=== PATIENT | female | born 1955 | race Caucasian/White ===

== ENCOUNTER 2017-08-12 14:31 | Emergency (ER) | payer MEDICAID, OTHER ==
[2017-08-12] MEDS ORDERED: Meclizine 25 MG Tab PO ONE (15:04)
--- NOTE | 2017-08-12 15:05 | EDM.PDOC ---
ED HPI GENERAL MEDICAL PROBLEM - General Chief Complaint: General Stated Complaint: VERTIGO Time Seen by Provider: 08/12/17 14:45 Source of Information: Reports: Patient History Limitations: Reports: No Limitations - History of Present Illness INITIAL COMMENTS - FREE TEXT/NARRATIVE: Susie comes into [facility] ED by EMS with sxs of vertigo since this am. Sxs are rotary. There is no headache, fevr, chills, nasal congestion, or cough, although she is aware that the l eye is reddened today. There has been no discharge. She has had vertigo in the past, and sxs have not improved since taking a dose of Meclizine 25 mg around 10 am. She has had 1 emesis. - Related Data Allergies Allergy/AdvReac Type Severity Reaction Status Date / Time acetaminophen [From Tylenol] Allergy Cannot Verified 08/12/17 14:47 Remember latex Allergy Cannot Verified 08/12/17 14:47 Remember meperidine [From Demerol] Allergy Cannot Verified 08/12/17 14:47 Remember Home Meds: Home Meds Meclizine [Antivert] 25 mg PO TID PRN #20 tab 08/12/17 [Rx] Nystatin [Nystatin] 1 applic TOP ASDIRECTED 08/12/17 [History] Omeprazole [Omeprazole] 20 mg PO BEDTIME 08/12/17 [History] Oxybutynin [Oxybutynin ER] 10 mg PO DAILY 08/12/17 [History] Rosuvastatin Calcium [Rosuvastatin Calcium] 10 mg PO DAILY 08/12/17 [History] Warfarin Sodium [Warfarin Sodium] 5 mg PO ASDIRECTED 08/12/17 [History] Past Medical History Neurological History: Reports: Vertigo - Past Surgical History Cardiovascular Surgical History: Reports: Valve Replacement Social & Family History - Tobacco Use Smoking Status *Q: Never Smoker - Caffeine Use Caffeine Use: Reports: Coffee - Recreational Drug Use Recreational Drug Use: No ED ROS GENERAL - Review of Systems Review Of Systems: ROS reveals no pertinent complaints other than HPI. ED EXAM, GENERAL - Physical Exam Exam: See Below Exam Limited By: No Limitations General Appearance: Alert, WD/WN, No Apparent Distress, Anxious Eye Exam: Right Eye: Normal Inspection, Left Eye: Conjunctival Injection, Bilateral Eye: EOMI, PERRL Ears: Normal External Exam, Normal TMs, Other (Ears did not clear with Politzer maneuver) Nose: Normal Inspection Throat/Mouth: Normal Inspection, Normal Lips, Normal Teeth, Normal Gums, Normal Oropharynx Head: Normocephalic Neck: Normal Inspection, Supple, Non-Tender Respiratory/Chest: Lungs Clear, Normal Breath Sounds, Chest Non-Tender Cardiovascular: Regular Rate, Rhythm, No Edema, No Murmur GI/Abdominal: Normal Bowel Sounds, Soft, Non-Tender, No Organomegaly, No Distention, No Mass Back Exam: Normal Inspection Extremities: Normal Inspection Neurological: Alert, Oriented, CN II-XII Intact, Normal Cognition, No Motor/ Sensory Deficits, Other (nystagmus on L lateral gaze) Psychiatric: Normal Affect, Anxious Skin Exam: Warm, Dry, Intact, Normal Color Lymphatic: No Adenopathy Course - Vital Signs Text/Narrative:: Following assessment at the [facility] ED, I administered Meclizine 25 mg, with iimprovment in sxs in about an hour. Her CBC was normal. Last Recorded V/S: Last Vital Signs Temp 36.4 C 08/12/17 14:47 Pulse 70 08/12/17 14:47 Resp 18 08/12/17 14:47 BP 169/86 H 08/12/17 14:47 Pulse Ox 99 08/12/17 14:47 - Orders/Labs/Meds Labs: Laboratory Tests 08/12/17 Range/Units 15:05 WBC 7.6 (4.5-12.0) X10-3/uL RBC 4.80 (3.23-5.20) x10(6)uL Hgb 14.1 (11.5-15.5) g/dL Hct 41.9 (30.0-51.3) % MCV 87.2 (80-96) fL MCH 29.4 (27.7-33.6) pg MCHC 33.7 (32.2-35.4) g/dL RDW 13.1 (11.5-15.5) % Plt Count 224 (125-369) X10(3)uL MPV 8.0 (7.4-10.4) fL Neut % (Auto) 80.8 (46-82) % Lymph % (Auto) 14.3 (13-37) % [place] % (Auto) 4.0 (4-12) % Eos % (Auto) 1 (1.0-5.0) % Baso % (Auto) 0 (0-2) % Neut # (Auto) 6.1 (1.6-8.3) # Lymph # (Auto) 1.1 (0.6-5.0) # [place] # (Auto) 0.3 (0.0-1.3) # Eos # (Auto) 0.1 (0.0-0.8) # Baso # (Auto) 0.0 (0.0-0.2) # Meds: Medications Discontinued Medications Generic Name Dose Route Start Last Admin Trade Name Freq PRN Reason Stop Dose Admin Meclizine HCl 25 mg 08/12/17 15:04 08/12/17 15:08 Antivert PO 08/12/17 15:05 25 mg ONETIME ONE Administration Departure - Departure Time of Disposition: 15:42 Disposition: Home, Self-Care 01 Condition: Fair Clinical Impression: Vertigo - Discharge Information Referrals: Roderick Scott MD [Primary Care Provider] - Forms: ED Department Discharge - Problem List & Annotations (1) Vertigo SNOMED Code(s): 132905930 Code(s): R42 - DIZZINESS AND GIDDINESS Status: Acute Current Visit: Yes Annotation/Comment:: Vertigo, possibly related to a viral illness. She does have some injection of the L eye. I dispensed Meclizine 25 mg up to 3 times per day, activity as tolerated. - Problem List Review Problem List Initiated/Reviewed/Updated: Yes - Assessment/Plan Plan: Follow up with PCP if needed.
== END 2017-08-12 15:55 | disposition home or self-care (01) ==
LOC: FB.ED 14:31
DX: R42 Dizziness and giddiness (principal); Z88.5 Allergy status to narcotic agent; Z88.6 Allergy status to analgesic agent; Z79.899 Other long term (current) drug therapy; Z91.040 Latex allergy status
CPT/HCPCS: 36415; 85025; 99284; A9270

== ENCOUNTER 2018-07-30 21:09 | Emergency (ER) | payer MEDICAID ==
[2018-07-30] MEDS ORDERED: methylPREDNISolone Sodium Succinate 125 MG/2 ML SDV IVPUSH ONE (21:54)
[2018-07-30] MEDS ORDERED: LORazepam 2 MG/ML SDV IVPUSH ONE (21:58)
--- NOTE | 2018-07-30 22:03 | EDM.PDOC ---
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 and felt well, ate her supper tonight , no n/v, towards the end of her supper she had dizziness when she turned her head took a meclizine which helped some, takes a meclizine 25 mg qAM for chronic dizziness has a h/o chronic dizziness, occurs most days, inc'd yesterday, worked only 2h yesterday and went home, today she felt better until this evening says her mother had vertigo of unknown cause pt took EMS to hospital, which she has done once before, says she has had 1 other more severe case of vertigo in past yr says she cannot sit up, however did turn her head from side to side in bed without difficulty has AVR x 17y, had dilated aorta on echo, PCP New ordered at CT for 5d from now, pt worried re what CT may show has been on warfarin x 17y says she is seeing double, that room is spinning, yet seems to make good eye contact, not bothered by light 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 - Related Data Allergies Allergy/AdvReac Type Severity Reaction Status Date / Time acetaminophen [From Tylenol] Allergy Cannot Verified 07/30/18 21:17 Remember latex Allergy Cannot Verified 07/30/18 21:17 Remember meperidine [From Demerol] Allergy Cannot Verified 07/30/18 21:17 Remember Home Meds: Home Meds Meclizine [Antivert] 25 mg PO TID PRN #20 tab 08/12/17 [Rx] Nystatin 1 applic TOP BID PRN 08/12/17 [History] Omeprazole 20 mg PO DAILY 08/12/17 [History] Oxybutynin [Oxybutynin ER] 10 mg PO BEDTIME 08/12/17 [History] Rosuvastatin Calcium 10 mg PO BEDTIME 08/12/17 [History] Warfarin Sodium 5 mg PO SUTUTHSA 08/12/17 [History] Calcium Carbonate [Tums] 200 mg PO DAILY 06/29/18 [History] Fluticasone Propionate [Flonase] 16 gm NASBOTH DAILY 06/29/18 [History] Multivitamin [Multivitamins] 1 each PO DAILY 06/29/18 [History] Vitamin E 200 units PO DAILY 06/29/18 [History] Warfarin [Coumadin] 7.5 mg PO MOWEFR 06/30/18 [History] predniSONE [Prednisone] 20 mg PO DAILY #5 tablet 07/30/18 [Rx] Past Medical History HEENT History: Reports: Cataract 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 SHELTER USE OF ANTICOAGULANT THERAPY. 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 - Past Surgical History HEENT Surgical History: Reports: Adenoidectomy, Tonsillectomy Cardiovascular Surgical History: Reports: Valve Replacement GI Surgical History: Reports: Colonoscopy Social & Family History - Caffeine Use Caffeine Use: Reports: Coffee, Soda ED ROS GENERAL - Review of Systems Review Of Systems: See Below Constitutional: Reports: No Symptoms HEENT: Reports: No Symptoms Respiratory: Reports: No Symptoms Cardiovascular: Reports: No Symptoms Endocrine: Reports: No Symptoms GI/Abdominal: Reports: No Symptoms : Reports: No Symptoms Musculoskeletal: Reports: No Symptoms Skin: Reports: No Symptoms Neurological: Reports: Dizziness Psychiatric: Reports: No Symptoms Hematologic/Lymphatic: Reports: No Symptoms Immunologic: Reports: No Symptoms ED EXAM, DIZZINESS - Physical Exam Exam: See Below Exam Limited By: No Limitations General Appearance: Alert, WD/WN, No Apparent Distress Eye Exam: Bilateral Eye: EOMI, Normal Inspection, PERRL Ears: Normal External Exam, Normal Canal, Hearing Grossly Normal, Normal TMs Nose: Normal Inspection, Normal Mucosa, No Blood Throat/Mouth: Normal Inspection, Normal Lips, Normal Teeth, Normal Gums, Normal Oropharynx, Normal Voice, No Airway Compromise Head Exam: Atraumatic, Normocephalic Neck: Normal Inspection, Supple, Non-Tender, Full Range of Motion. No: Lymphadenopathy (R), Lymphadenopathy (L) Respiratory/Chest: No Respiratory Distress, Lungs Clear, Normal Breath Sounds, No Accessory Muscle Use, Chest Non-Tender Cardiovascular: Regular Rate, Rhythm, No Edema, No Gallop, No JVD, No Rub, Other (2/6 DONAVON at LSB, regular, quiet precordium) GI/Abdominal: Soft, Non-Tender, No Distention Neurological: Alert, Normal Mood/Affect, CN II-XII Intact, Normal Reflexes, No Motor/Sensory Deficits, Oriented x 3, Other (DTRs 2+ x 6) Back Exam: Normal Inspection, Full Range of Motion. No: CVA Tenderness (R), CVA Tenderness (L) Extremities: Normal Inspection, Normal Range of Motion, Non-Tender, No Pedal Edema Psychiatric: Normal Affect, Normal Mood Skin Exam: Warm, Dry, Intact, Normal Color, No Rash Course - Vital Signs Last Recorded V/S: Last Vital Signs Temp 36.3 C 07/30/18 21:09 Pulse 82 07/30/18 21:09 Resp 20 07/30/18 21:09 BP 169/105 H 07/30/18 21:09 Pulse Ox 100 07/30/18 21:09 - Orders/Labs/Meds Orders: Active Orders 24 hr Category Date Time Status EKG Documentation Completion [RC] ASDIRECTED Care 07/30/18 21:58 Active Sodium Chloride 0.9% [Saline Flush] Med 07/30/18 23:10 Active 10 ml FLUSH ASDIRECTED PRN Peripheral IV Insertion Adult [OM.PC] Routine Oth 07/30/18 23:10 Ordered EKG 12 Lead [EK] Routine Ther 07/30/18 21:58 Ordered Medication Orders Sodium Chloride (Saline Flush) 10 ml FLUSH ASDIRECTED PRN PRN Reason: Keep Vein Open Last Admin: 07/30/18 23:15 Dose: 10 ml Labs: Laboratory Tests 07/30/18 07/30/18 07/30/18 Range/Units 21:25 21:25 21:25 WBC 9.9 (4.5-12.0) X10-3/uL RBC 4.64 (3.23-5.20) x10(6)uL Hgb 13.9 (11.5-15.5) g/dL Hct 40.2 (30.0-51.3) % MCV 86.7 (80-96) fL MCH 30.0 (27.7-33.6) pg MCHC 34.5 (32.2-35.4) g/dL RDW 13.5 (11.5-15.5) % Plt Count 223 (125-369) X10(3)uL MPV 8.4 (7.4-10.4) fL Neut % (Auto) 73.9 (46-82) % Lymph % (Auto) 18.0 (13-37) % [place] % (Auto) 6.2 (4-12) % Eos % (Auto) 2 (1.0-5.0) % Baso % (Auto) 0 (0-2) % Neut # (Auto) 7.3 (1.6-8.3) # Lymph # (Auto) 1.8 (0.6-5.0) # [place] # (Auto) 0.6 (0.0-1.3) # Eos # (Auto) 0.2 (0.0-0.8) # Baso # (Auto) 0.0 (0.0-0.2) # PT (8.7-11.1) INR (0.89-1.13) Sodium 138 (135-145) mmol/L Potassium 4.2 (3.5-5.3) mmol/L Chloride 102 (100-110) mmol/L Carbon Dioxide 29 (21-32) mmol/L BUN 18 (7-18) mg/dL Creatinine 1.4 H (0.55-1.02) mg/dL Est Cr Clr Drug Dosing 33.58 mL/min Estimated GFR (MDRD) 38 L (>60) BUN/Creatinine Ratio 12.9 (9-20) Glucose 109 (80-116) mg/dL Calcium 9.3 (8.6-10.2) mg/dL Total Bilirubin 0.4 (0.1-1.3) mg/dL AST 40 H (5-25) IU/L ALT 54 H (12-36) U/L Alkaline Phosphatase 93 (56-112) IU/L Troponin I < 0.017 L (<0.017-0.056) ng/mL C-Reactive Protein < 0.2 L (0.5-0.9) mg/dL Total Protein 7.4 (6.0-8.0) g/dL Albumin 3.7 (3.2-4.6) g/dL Globulin 3.7 g/dL Albumin/Globulin Ratio 1.0 Urine Color (YELLOW) Urine Appearance (CLEAR) Urine pH (5.0-6.5) Ur Specific [place] (1.010-1.025) Urine Protein (NEGATIVE) mg/dL Urine Glucose (UA) (NEGATIVE) mg/dL Urine Ketones (NEGATIVE) mg/dL Urine Occult Blood (NEGATIVE) Urine Nitrite (NEGATIVE) Urine Bilirubin (NEGATIVE) Urine Urobilinogen (NEGATIVE) mg/dL Ur Leukocyte Esterase (NEGATIVE) Urine RBC (0) Urine WBC (0) Ur Squamous Epith Cells (NS,R,O) Amorphous Sediment Urine Bacteria (NS) 07/30/18 07/30/18 Range/Units 21:25 23:00 WBC (4.5-12.0) X10-3/uL RBC (3.23-5.20) x10(6)uL Hgb (11.5-15.5) g/dL Hct (30.0-51.3) % MCV (80-96) fL MCH (27.7-33.6) pg MCHC (32.2-35.4) g/dL RDW (11.5-15.5) % Plt Count (125-369) X10(3)uL MPV (7.4-10.4) fL Neut % (Auto) (46-82) % Lymph % (Auto) (13-37) % [place] % (Auto) (4-12) % Eos % (Auto) (1.0-5.0) % Baso % (Auto) (0-2) % Neut # (Auto) (1.6-8.3) # Lymph # (Auto) (0.6-5.0) # [place] # (Auto) (0.0-1.3) # Eos # (Auto) (0.0-0.8) # Baso # (Auto) (0.0-0.2) # PT 19.5 H (8.7-11.1) INR 2.02 H (0.89-1.13) Sodium (135-145) mmol/L Potassium (3.5-5.3) mmol/L Chloride (100-110) mmol/L Carbon Dioxide (21-32) mmol/L BUN (7-18) mg/dL Creatinine (0.55-1.02) mg/dL Est Cr Clr Drug Dosing mL/min Estimated GFR (MDRD) (>60) BUN/Creatinine Ratio (9-20) Glucose (80-116) mg/dL Calcium (8.6-10.2) mg/dL Total Bilirubin (0.1-1.3) mg/dL AST (5-25) IU/L ALT (12-36) U/L Alkaline Phosphatase (56-112) IU/L Troponin I (<0.017-0.056) ng/mL C-Reactive Protein (0.5-0.9) mg/dL Total Protein (6.0-8.0) g/dL Albumin (3.2-4.6) g/dL Globulin g/dL Albumin/Globulin Ratio Urine Color Yellow (YELLOW) Urine Appearance Slightly cloudy (CLEAR) Urine pH 8.0 H (5.0-6.5) Ur Specific [place] 1.020 (1.010-1.025) Urine Protein Negative (NEGATIVE) mg/dL Urine Glucose (UA) Normal (NEGATIVE) mg/dL Urine Ketones Negative (NEGATIVE) mg/dL Urine Occult Blood Negative (NEGATIVE) Urine Nitrite Negative (NEGATIVE) Urine Bilirubin Negative (NEGATIVE) Urine Urobilinogen Normal (NEGATIVE) mg/dL Ur Leukocyte Esterase Negative (NEGATIVE) Urine RBC 0-5 (0) Urine WBC 0-5 (0) Ur Squamous Epith Cells Occasional (NS,R,O) Amorphous Sediment Few Urine Bacteria Rare H (NS) Meds: Medications Generic Name Dose Route Start Last Admin Trade Name Freq PRN Reason Stop Dose Admin Sodium Chloride 10 ml 07/30/18 23:10 07/30/18 23:15 Saline Flush FLUSH 10 ml ASDIRECTED PRN Administration Keep Vein Open Discontinued Medications Generic Name Dose Route Start Last Admin Trade Name Freq PRN Reason Stop Dose Admin Lorazepam 0.5 mg 07/30/18 21:58 07/30/18 23:17 Ativan IVPUSH 07/30/18 21:59 0.5 mg ONETIME ONE Administration Meclizine HCl 25 mg 07/30/18 22:56 07/30/18 23:25 Antivert PO 07/30/18 22:57 25 mg ONETIME ONE Administration Methylprednisolone Sodium Succinate 125 mg 07/30/18 21:54 07/30/18 23:15 Solu-Medrol IVPUSH 07/30/18 21:55 125 mg ONETIME ONE Administration - Re-Assessments/Exams Free Text/Narrative Re-Assessment/Exam: 07/30/18 23:27 labs essentially neg, no comparison, no acute process pt a little sleepy, says her dizziness is better will continue steroid x 5d as well as meclizine TID dizziness may have an anxiety component not c/w Meneire's, no BPV Departure - Departure Time of Disposition: 23:28 Disposition: Home, Self-Care 01 Condition: Good Clinical Impression: Dizziness - Discharge Information *PRESCRIPTION DRUG MONITORING PROGRAM REVIEWED*: Not Applicable *COPY OF PRESCRIPTION DRUG MONITORING REPORT IN PATIENT VERONICA: Not Applicable Prescriptions: predniSONE [Prednisone] 20 mg PO DAILY #5 tablet Instructions: Dizziness Referrals: Roderick Scott MD [Primary Care Provider] - Forms: ED Department Discharge Additional Instructions: For dizziness, take prednisone 20 mg 1 tab daily for 5 days. For dizziness, take meclizine 25 mg 1 tab 3 times a day for 3-5 days. Get adequate rest. Eat 3 meals a day. Do not drive if dizzy. May otherwise continue usual activities. See your doctor in 3-4 days. Return to ED if you are feeling worse. - My Orders Last 24 Hours: My Active Orders 07/30/18 21:58 EKG Documentation Completion [RC] ASDIRECTED EKG 12 Lead [EK] Routine 07/30/18 23:10 Sodium Chloride 0.9% [Saline Flush] 10 ml FLUSH ASDIRECTED PRN Peripheral IV Insertion Adult [OM.PC] Routine - Assessment/Plan Last 24 Hours: My Active Orders 07/30/18 21:58 EKG Documentation Completion [RC] ASDIRECTED EKG 12 Lead [EK] Routine 07/30/18 23:10 Sodium Chloride 0.9% [Saline Flush] 10 ml FLUSH ASDIRECTED PRN Peripheral IV Insertion Adult [OM.PC] Routine
[2018-07-30] MEDS ORDERED: Meclizine 25 MG Tab PO ONE (22:56)
[2018-07-30] MEDS ORDERED: Sodium Chloride 0.9% 10 ML Syringe FLUSH PRN (23:10)
== END 2018-07-31 00:25 | disposition home or self-care (01) ==
LOC: FB.ED 21:09
DX: R42 Dizziness and giddiness (principal); K21.9 Gastro-esophageal reflux disease without esophagitis; Z79.899 Other long term (current) drug therapy; Z88.6 Allergy status to analgesic agent; Z91.040 Latex allergy status; Z88.5 Allergy status to narcotic agent; Z79.01 Long term (current) use of anticoagulants
CPT/HCPCS: 36415; 80053; 81001; 84484; 85025; 85610; 86140; 93005; 96374; 96375; 99284; A9270; J2060; J2930

== ENCOUNTER 2019-09-19 18:41 | Emergency (ER) | payer MEDICARE, OTHER ==
[2019-09-19] MEDS ORDERED: Ketorolac 60 MG/2 ML SDV IM ONE (19:22)
[2019-09-19] MEDS ORDERED: Cyclobenzaprine 10 MG Tab PO ONE (19:22)
[2019-09-19] MEDS ORDERED: traMADol 50 MG Tab PO ONE (19:22)
[2019-09-19] MEDS ORDERED: Meclizine 25 MG Tab PO ONE (19:54)
[2019-09-19] MEDS ORDERED: LORazepam 2 MG/ML SDV IVPUSH ONE (19:54)
[2019-09-19] MEDS ORDERED: Sodium Chloride 0.9% 10 ML Syringe FLUSH PRN (20:18)
[2019-09-19] MEDS ORDERED: Ondansetron 4 MG/2 ML SDV IVPUSH ONE (20:26)
[2019-09-19] MEDS ORDERED: HYDROmorphone 2 MG/ML SDV IVPUSH ONE (20:26)
[2019-09-19] MEDS ORDERED: HYDROmorphone 2 MG/ML SDV IVPUSH STA (20:37)
[2019-09-19] MEDS ORDERED: Iopamidol 755 Mg/ML 100 ML Bottle IV ONE (21:59)
--- NOTE | 2019-09-19 23:30 | EDM.PDOC ---
ED HPI GENERAL MEDICAL PROBLEM - General Chief Complaint: General Stated Complaint: fell, discomfort in right chest Time Seen by Provider: 09/19/19 19:00 Source of Information: Reports: Patient History Limitations: Reports: No Limitations - History of Present Illness INITIAL COMMENTS - FREE TEXT/NARRATIVE: Patient presented to the ED because of a fall. She has a history of chronic vertigo and while she was inside her car she had an cute attack of vertigo. She then walk into her house and fell inside. She landed on her right side and complain of back pain,right hip pain. There was no LOC after the fall. She is taking coumadin for a heart valve replacement surgery. hip Pain Score (Numeric/FACES): 6 - Related Data Allergies Allergy/AdvReac Type Severity Reaction Status Date / Time acetaminophen [From Tylenol] Allergy Cannot Verified 09/19/19 19:14 Remember latex Allergy Cannot Verified 09/19/19 19:14 Remember meperidine [From Demerol] Allergy Cannot Verified 09/19/19 19:14 Remember Home Meds: Home Meds Meclizine [Antivert] 25 mg PO TID PRN #20 tab 08/12/17 [Rx] Nystatin 1 applic TOP BID PRN 08/12/17 [History] Omeprazole 20 mg PO DAILY 08/12/17 [History] Oxybutynin [Oxybutynin ER] 10 mg PO BEDTIME 08/12/17 [History] Rosuvastatin Calcium 10 mg PO BEDTIME 08/12/17 [History] Warfarin Sodium 5 mg PO SUTUTHSA 08/12/17 [History] Calcium Carbonate [Tums] 200 mg PO DAILY PRN 06/29/18 [History] Fluticasone Propionate [Flonase] 16 gm NASBOTH DAILY 06/29/18 [History] Multivitamin [Multivitamins] 1 each PO DAILY 06/29/18 [History] Vitamin E 200 units PO DAILY 06/29/18 [History] Warfarin [Coumadin] 7.5 mg PO MOWEFR 06/30/18 [History] Past Medical History HEENT History: Reports: Cataract Other HEENT History: MENIERE'S DISEASE. MYOPIA OF BOTH EYES. PRESBYOPIA. Cardiovascular History: Reports: Aneurysm, Heart Valve Replacement, High Cholesterol Other Cardiovascular History: HX OF ARTIFICIAL HEART VALVE. SKILLED NURSING USE OF ANTICOAGULANT THERAPY. Respiratory History: Reports: COPD Gastrointestinal History: Reports: GERD Genitourinary History: Reports: Urinary Incontinence Neurological History: Reports: Vertigo Psychiatric History: Reports: Anxiety, Depression Endocrine/Metabolic History: Reports: Obesity/BMI 30+ Hematologic History: Reports: Anemia Other Dermatologic History: VARICOSE VEINS OF LOWER EXTREMITY. - Infectious Disease History Infectious Disease History: Reports: Chicken Pox, Measles, Mumps - Past Surgical History HEENT Surgical History: Reports: Adenoidectomy, Tonsillectomy Cardiovascular Surgical History: Reports: Valve Replacement GI Surgical History: Reports: Colonoscopy Social & Family History - Family History Family Medical History: Noncontributory - Tobacco Use Smoking Status *Q: Never Smoker - Caffeine Use Caffeine Use: Reports: Coffee, Soda - Recreational Drug Use Recreational Drug Use: No ED ROS GENERAL - Review of Systems Review Of Systems: See Below Constitutional: Reports: No Symptoms HEENT: Reports: No Symptoms Respiratory: Reports: No Symptoms Cardiovascular: Reports: No Symptoms Endocrine: Reports: No Symptoms GI/Abdominal: Reports: No Symptoms : Reports: No Symptoms Musculoskeletal: Reports: Muscle Pain, Muscle Stiffness Skin: Reports: Change in Color Neurological: Reports: No Symptoms ED EXAM, GENERAL - Physical Exam Exam: See Below Exam Limited By: Altered Mental Status General Appearance: Alert, No Apparent Distress Ears: Normal External Exam Nose: Normal Inspection, Normal Mucosa Throat/Mouth: Normal Inspection, Normal Lips, Normal Teeth Head: Atraumatic, Normocephalic Neck: Normal Inspection, Supple, Non-Tender Respiratory/Chest: No Respiratory Distress, Lungs Clear Cardiovascular: Normal Peripheral Pulses, Regular Rate, Rhythm, No Edema GI/Abdominal: Normal Bowel Sounds, Soft, Non-Tender, No Organomegaly Extremities: Other (tenderness of the thoracic and lumbar spine and right hip. there's a large hematoma on the right thigh) Course - Vital Signs Text/Narrative:: Labs reviewed and discussed with patient INR-2.5 Hb-13.5 NS [address] RLE-see result Dilaudid 1 mg IV, zofran 4 mg IV meclizine 50 mg IV x1 ativan 1 mg IV x1 Toradol 60 mg IM Last Recorded V/S: Last Vital Signs Temp 35.8 C L 09/19/19 18:50 Pulse 100 09/19/19 22:45 Resp 12 09/19/19 22:45 BP 122/77 09/19/19 22:45 Pulse Ox 97 09/19/19 22:45 - Orders/Labs/Meds Orders: Active Orders 24 hr Category Date Time Status Hip Min 2V or 3V w Pelvis Rt [CR] Stat Exams 09/19/19 19:56 Taken Lower Extremity w Cont Rt [CT] Stat Exams 09/19/19 Taken Lumbar Spine 2 or 3V [CR] Stat Exams 09/19/19 19:56 Taken Thoracic Spine 3V [CR] Stat Exams 09/19/19 19:56 Taken HEMOGLOBIN [HEME] Stat Lab 09/19/19 23:07 Ordered HEMOGLOBIN/HEMATOCRIT,HH [HEME] Stat Lab 09/19/19 23:08 Ordered Sodium Chloride 0.9% [Saline Flush] Med 09/19/19 20:18 Active 10 ml FLUSH ASDIRECTED PRN Medication Orders Sodium Chloride (Saline Flush) 10 ml FLUSH ASDIRECTED PRN PRN Reason: other Last Admin: 09/19/19 20:18 Dose: 10 ml Labs: Laboratory Tests 09/19/19 09/19/19 09/19/19 Range/Units 20:15 20:15 20:15 WBC 14.1 H (4.5-12.0) X10-3/uL RBC 4.59 (3.23-5.20) x10(6)uL Hgb 13.5 (11.5-15.5) g/dL Hct 39.8 (30.0-51.3) % MCV 86.8 (80-96) fL MCH 29.5 (27.7-33.6) pg MCHC 34.0 (32.2-35.4) g/dL RDW 13.7 (11.5-15.5) % Plt Count 252 (125-369) X10(3)uL MPV 7.4 (7.4-10.4) fL Neut % (Auto) 85.6 H (46-82) % Lymph % (Auto) 10.2 L (13-37) % Larimer % (Auto) 3.3 L (4-12) % Eos % (Auto) 1 (1.0-5.0) % Baso % (Auto) 0 (0-2) % Neut # (Auto) 12.1 H (1.6-8.3) # Lymph # (Auto) 1.4 (0.6-5.0) # Larimer # (Auto) 0.5 (0.0-1.3) # Eos # (Auto) 0.1 (0.0-0.8) # Baso # (Auto) 0.0 (0.0-0.2) # PT 23.0 H (9.0-11.1) sec INR 2.25 H (1.00-1.24) Sodium 138 (135-145) mmol/L Potassium 3.8 (3.5-5.3) mmol/L Chloride 100 (100-110) mmol/L Carbon Dioxide 28 (21-32) mmol/L BUN 16 (7-18) mg/dL Creatinine 1.2 H (0.55-1.02) mg/dL Est Cr Clr Drug Dosing 38.66 mL/min Estimated GFR (MDRD) 45 L (>60) BUN/Creatinine Ratio 13.3 (9-20) Glucose 148 H (80-116) mg/dL Calcium 8.9 (8.6-10.2) mg/dL Total Bilirubin 0.5 (0.1-1.3) mg/dL AST 45 H D (5-25) IU/L ALT 53 H (12-36) U/L Alkaline Phosphatase 97 (56-112) IU/L Total Protein 7.5 (6.0-8.0) g/dL Albumin 3.6 (3.2-4.6) g/dL Globulin 3.9 g/dL Albumin/Globulin Ratio 0.9 Meds: Medications Generic Name Dose Route Start Last Admin Trade Name Freq PRN Reason Stop Dose Admin Sodium Chloride 10 ml 09/19/19 20:18 09/19/19 20:18 Saline Flush FLUSH 10 ml ASDIRECTED PRN Administration other Discontinued Medications Generic Name Dose Route Start Last Admin Trade Name Freq PRN Reason Stop Dose Admin Cyclobenzaprine HCl 10 mg 09/19/19 19:22 09/19/19 19:30 Flexeril PO 09/19/19 19:23 10 mg ONETIME ONE Administration Hydromorphone HCl 2 mg 09/19/19 20:26 09/19/19 22:47 Dilaudid IVPUSH 09/19/19 20:27 Not Given ONETIME ONE Hydromorphone HCl 1 mg 09/19/19 20:37 09/19/19 20:38 Dilaudid IVPUSH 09/19/19 20:38 1 mg NOW STA Administration Iopamidol 100 ml 09/19/19 21:59 09/19/19 22:08 Isovue-370 (76%) IV 09/19/19 22:00 100 ml . DIRECTED ONE Administration Ketorolac Tromethamine 60 mg 09/19/19 19:22 09/19/19 19:30 Toradol IM 09/19/19 19:23 60 mg ONETIME ONE Administration Lorazepam 1 mg 09/19/19 19:54 09/19/19 20:13 Ativan IVPUSH 09/19/19 19:55 1 mg ONETIME ONE Administration Meclizine HCl 50 mg 09/19/19 19:54 09/19/19 20:14 Antivert PO 09/19/19 19:55 50 mg ONETIME ONE Administration Ondansetron HCl 4 mg 09/19/19 20:26 09/19/19 20:32 Zofran IVPUSH 09/19/19 20:27 4 mg ONETIME ONE Administration Phytonadione 5 mg 09/19/19 21:35 09/19/19 21:41 Aquamephyton SUBCUT 09/19/19 21:36 5 mg NOW STA Administration Tramadol HCl 100 mg 09/19/19 19:22 09/19/19 19:30 Ultram PO 09/19/19 19:23 100 mg ONETIME ONE Administration Departure - Departure Time of Disposition: 23:00 Disposition: DC/Tfer to Acute Hospital 02 Condition: Good Clinical Impression: Fall, Hematoma - Discharge Information Referrals: Roderick Scott MD [Primary Care Provider] - Forms: ED Department Discharge Sepsis Event Note - Evaluation Sepsis Screening Result: No Definite Risk - Focused Exam Vital Signs: Vital Signs Temp Pulse Resp BP Pulse Ox 09/19/19 22:45 100 12 122/77 97 09/19/19 21:27 99 12 107/67 95 09/19/19 20:37 99 14 107/67 95 09/19/19 18:50 35.8 C L 87 16 168/86 H 99 Date Exam was Performed: 09/19/19 Time Exam was Performed: 23:24 - My Orders Last 24 Hours: My Active Orders 09/19/19 Lower Extremity w Cont Rt [CT] Stat 09/19/19 19:56 Hip Min 2V or 3V w Pelvis Rt [CR] Stat Lumbar Spine 2 or 3V [CR] Stat Thoracic Spine 3V [CR] Stat 09/19/19 20:18 Sodium Chloride 0.9% [Saline Flush] 10 ml FLUSH ASDIRECTED PRN 09/19/19 23:07 HEMOGLOBIN [HEME] Stat 09/19/19 23:08 HEMOGLOBIN/HEMATOCRIT,HH [HEME] Stat - Assessment/Plan Last 24 Hours: My Active Orders 09/19/19 Lower Extremity w Cont Rt [CT] Stat 09/19/19 19:56 Hip Min 2V or 3V w Pelvis Rt [CR] Stat Lumbar Spine 2 or 3V [CR] Stat Thoracic Spine 3V [CR] Stat 09/19/19 20:18 Sodium Chloride 0.9% [Saline Flush] 10 ml FLUSH ASDIRECTED PRN 09/19/19 23:07 HEMOGLOBIN [HEME] Stat 09/19/19 23:08 HEMOGLOBIN/HEMATOCRIT,HH [HEME] Stat
--- NOTE | 2019-09-20 10:02 | CR ---
INDICATION: Fall, right hip pain - large hematoma lateral hip, upper femur. RIGHT HIP WITH PELVIS: Two frontal views of the pelvis with frontal and lateral views of the right hip were obtained 09/19/19 - no comparisons. Moderate hypertrophic degenerative changes are noted at the sacroiliac joints bilaterally. A fracture, dislocation or other acute bone or joint abnormality, was not identified. The hip joints appear to be fairly intact. Overall bone density appeared to be normal. Minimal tug lesions are noted at both greater trochanteric areas. IMPRESSION: 1. No acute fractures or dislocations. 2. Osteoarthritis sacroiliac joints. 3. Degenerative changes and disk disease suggested lumbosacral spine visualized. MTDD
[2019-09-20] MEDS ORDERED: Sodium Chloride 0.9% 1,000 ML IV ONE (23:25)
== END 2019-09-19 23:48 ==
LOC: FB.ED 18:41
DX: S70.11XA Contusion of right thigh, initial encounter (principal); J44.9 Chronic obstructive pulmonary disease, unspecified; K21.9 Gastro-esophageal reflux disease without esophagitis; E78.00 Pure hypercholesterolemia, unspecified; F41.9 Anxiety disorder, unspecified; F32.9 Major depressive disorder, single episode, unspecified; E66.9 Obesity, unspecified; Z68.31 Body mass index [BMI] 31.0-31.9, adult; Z88.8 Allergy status to other drugs, medicaments and biological substances; Z91.040 Latex allergy status; Z79.899 Other long term (current) drug therapy; W19.XXXA Unspecified fall, initial encounter; Y93.01 Activity, walking, marching and hiking; Y92.009 Unspecified place in unspecified non-institutional (private) residence as the place of occurrence of the external cause
CPT/HCPCS: 36415; 72072; 72100; 73502-RT; 73701-RT; 80053; 85014; 85018; 85025; 85610; 96372; 96374; 96375; 99285-25; A9270-GY; J1170; J1885; J2060; J2405; J3430; J7030; Q9967

== ENCOUNTER 2019-10-08 22:48 | Emergency (ER) | payer MEDICARE, OTHER ==
--- NOTE | 2019-10-08 23:13 | EDM.PDOC ---
ED HPI GENERAL MEDICAL PROBLEM - General Stated Complaint: POST OP COMPLICATION Time Seen by Provider: 10/08/19 23:09 Source of Information: Reports: Patient History Limitations: Reports: No Limitations - History of Present Illness INITIAL COMMENTS - FREE TEXT/NARRATIVE: 64 yo with rt lower ext pain,swelling. Had a hematoma last week after an injury, was at [facility] for a few days.A ERIC drain was placed in the thigh, and left in situ.Tonight it started bleeding and could not stop. She takes Warfarin due to a mechanical valve. - Related Data Allergies Allergy/AdvReac Type Severity Reaction Status Date / Time acetaminophen [From Tylenol] Allergy Nausea and Verified 10/09/19 05:21 Vomiting latex Allergy Rash Verified 10/09/19 05:21 meperidine [From Demerol] Allergy Nausea and Verified 10/09/19 05:22 Vomiting Home Meds: Home Meds Nystatin 1 applic TOP BID PRN 08/12/17 [History] Omeprazole 20 mg PO DAILY 08/12/17 [History] Oxybutynin [Oxybutynin ER] 10 mg PO DAILY 08/12/17 [History] Rosuvastatin Calcium 20 mg PO DAILY 08/12/17 [History] Warfarin Sodium 5 mg PO ASDIRECTED 08/12/17 [History] Fluticasone Propionate [Flonase] 16 gm NASBOTH BID 06/29/18 [History] Multivitamin [Multivitamins] 1 each PO DAILY 06/29/18 [History] Vitamin E 200 units PO DAILY 06/29/18 [History] Warfarin [Coumadin] 7.5 mg PO ASDIRECTED 06/30/18 [History] Amoxicillin 500 mg PO ASDIRECTED 10/09/19 [History] Enoxaparin Sodium [Lovenox] 80 mg SQ BID 10/09/19 [History] Loperamide [Imodium] 2 mg PO Q6H PRN 10/09/19 [History] Meclizine [Antivert] 25 mg PO Q4H PRN 10/09/19 [History] Sennosides/Docusate Sodium [Senna Plus 8.6-50 mg Tablet] 1 each PO BID 10/09/19 [History] oxyCODONE 5 mg PO Q4H 10/09/19 [History] polyethylene glycoL 3350 [MiraLAX] 17 gm PO BID 10/09/19 [History] Past Medical History HEENT History: Reports: Cataract Other HEENT History: MENIERE'S DISEASE. MYOPIA OF BOTH EYES. PRESBYOPIA. Cardiovascular History: Reports: Aneurysm, Heart Valve Replacement, High Cholesterol Other Cardiovascular History: HX OF ARTIFICIAL HEART VALVE. [facility] USE OF ANTICOAGULANT THERAPY. Respiratory History: Reports: COPD Gastrointestinal History: Reports: GERD Genitourinary History: Reports: Urinary Incontinence Neurological History: Reports: Vertigo Psychiatric History: Reports: Anxiety, Depression Endocrine/Metabolic History: Reports: Obesity/BMI 30+ Hematologic History: Reports: Anemia Other Dermatologic History: VARICOSE VEINS OF LOWER EXTREMITY. - Infectious Disease History Infectious Disease History: Reports: Chicken Pox, Measles, Mumps - Past Surgical History HEENT Surgical History: Reports: Adenoidectomy, Tonsillectomy Cardiovascular Surgical History: Reports: Valve Replacement GI Surgical History: Reports: Colonoscopy Social & Family History - Family History Family Medical History: Noncontributory - Caffeine Use Caffeine Use: Reports: Coffee, Soda Review of Systems - Review of Systems Review Of Systems: Comprehensive ROS is negative, except as noted in HPI. ED EXAM, GENERAL - Physical Exam Exam: See Below Free Text/Narrative:: Rt thigh edema. ERIC drain in place. Increased serosanguineous discharge,but no overt bleeding Exam Limited By: No Limitations General Appearance: Alert, WD/WN Ears: Normal External Exam Ear Exam: Bilateral Ear: Auricle Normal, Canal Normal, TM normal Course - Vital Signs Last Recorded V/S: Last Vital Signs Temp 97.5 F 10/08/19 22:50 Pulse 96 10/08/19 22:50 Resp 16 10/08/19 22:50 BP 156/95 H 10/08/19 22:50 Pulse Ox 99 10/08/19 22:50 Departure - Departure Time of Disposition: 23:12 Disposition: Home, Self-Care 01 Condition: Good Clinical Impression: Hematoma - Discharge Information Referrals: Roderick Scott MD [Primary Care Provider] - Forms: ED Department Discharge Care Plan Goals: Keep dressing over draining area. Keep follow up appointments. Return to ER as needed. Sepsis Event Note - Focused Exam Date Exam was Performed: 10/10/19 Time Exam was Performed: 07:10 - Problem List & Annotations (1) Encounter for dressing of wound SNOMED Code(s): 169073717 Code(s): Z48.00 - ENCOUNTER FOR CHANGE OR REMOVAL OF NONSURG WOUND DRESSING Status: Acute (2) Hematoma SNOMED Code(s): 853451987 Code(s): T14.8XXA - OTHER INJURY OF UNSPECIFIED BODY REGION, INITIAL ENCOUNTER Status: Acute - Problem List Review Problem List Initiated/Reviewed/Updated: Yes - Assessment/Plan Plan: Pressure dressing placed. Reassurance. Has F/U with PMD on Thursday
== END 2019-10-08 23:30 | disposition home or self-care (01) ==
LOC: FB.ED 22:48
DX: L76.32 Postprocedural hematoma of skin and subcutaneous tissue following other procedure (principal); E78.00 Pure hypercholesterolemia, unspecified; K21.9 Gastro-esophageal reflux disease without esophagitis; E66.9 Obesity, unspecified; Z88.8 Allergy status to other drugs, medicaments and biological substances; Z91.040 Latex allergy status; Z88.6 Allergy status to analgesic agent; Z79.899 Other long term (current) drug therapy; Z79.01 Long term (current) use of anticoagulants; Z68.31 Body mass index [BMI] 31.0-31.9, adult
CPT/HCPCS: 99283

== ENCOUNTER 2019-10-31 23:59 | Emergency (ER) | payer MEDICARE, OTHER ==
[2019-11-01] MEDS ORDERED: Meclizine 25 MG Tab PO ONE (00:27)
--- NOTE | 2019-11-01 00:36 | EDM.PDOC ---
ED HPI GENERAL MEDICAL PROBLEM - General Chief Complaint: Neuro Symptoms/Deficits Stated Complaint: FEVER Time Seen by Provider: 11/01/19 00:10 Source of Information: Reports: Patient, Old Records History Limitations: Reports: No Limitations - History of Present Illness INITIAL COMMENTS - FREE TEXT/NARRATIVE: Susie returns to [facility] ED by EMS with sxs of dizziness i.e. vertigo this evening, associated with malaise, weakness and nausea. She felt warm today, but did not secure a temp. There has been some headache, managed with a dose of Aleve in spite of Coumadin therapy. Her R thigh has been aching, status post evacuation of a hematoma to the lateral R thigh following a fall in August. The ERIC drain was removed last month at the Clinic. 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 Upon arrival, she is alert, orientated, afebrile, VSS. Treatments ADMISSION SPECIALIST: Reports: IV/IO, NSAIDS, Other (see below) Other Treatments ADMISSION SPECIALIST: zofran IV R thigh Pain Score (Numeric/FACES): 6 - Related Data Allergies Allergy/AdvReac Type Severity Reaction Status Date / Time acetaminophen [From Tylenol] Allergy Nausea and Verified 11/01/19 00:09 Vomiting latex Allergy Rash Verified 11/01/19 00:09 meperidine [From Demerol] Allergy Nausea and Verified 11/01/19 00:09 Vomiting Home Meds: Home Meds Nystatin 1 applic TOP BID PRN 08/12/17 [History] Omeprazole 20 mg PO DAILY 08/12/17 [History] Oxybutynin [Oxybutynin ER] 10 mg PO BEDTIME 08/12/17 [History] Rosuvastatin Calcium 20 mg PO BEDTIME 08/12/17 [History] Warfarin Sodium 5 mg PO MOWEFR 08/12/17 [History] Fluticasone Propionate [Flonase] 16 gm NASBOTH BID 06/29/18 [History] Multivitamin [Multivitamins] 1 each PO DAILY 06/29/18 [History] Vitamin E 200 units PO DAILY 06/29/18 [History] Warfarin [Coumadin] 2.5 mg PO SUTUTHSA 06/30/18 [History] Past Medical History HEENT History: Reports: Cataract Other HEENT History: MENIERE'S DISEASE. MYOPIA OF BOTH EYES. PRESBYOPIA. Cardiovascular History: Reports: Aneurysm, Heart Valve Replacement, High Cholesterol Other Cardiovascular History: HX OF ARTIFICIAL HEART VALVE. ALF USE OF ANTICOAGULANT THERAPY. Respiratory History: Reports: COPD Gastrointestinal History: Reports: GERD Genitourinary History: Reports: Urinary Incontinence Neurological History: Reports: CVA, Vertigo Psychiatric History: Reports: Anxiety, Depression Endocrine/Metabolic History: Reports: Obesity/BMI 30+ Hematologic History: Reports: Anemia Other Hematologic History: Large hematoma right thigh, surgical intervention with ERIC drain. Other Dermatologic History: VARICOSE VEINS OF LOWER EXTREMITY. - Infectious Disease History Infectious Disease History: Reports: Chicken Pox, Measles, Mumps - Past Surgical History HEENT Surgical History: Reports: Adenoidectomy, Tonsillectomy Cardiovascular Surgical History: Reports: Valve Replacement GI Surgical History: Reports: Colonoscopy Social & Family History - Family History Family Medical History: Noncontributory - Caffeine Use Caffeine Use: Reports: Coffee, Soda ED ROS GENERAL - Review of Systems Review Of Systems: See Below Constitutional: Reports: Fever, Malaise, Weakness HEENT: Reports: Vertigo (relapse) Respiratory: Reports: No Symptoms Cardiovascular: Reports: No Symptoms Endocrine: Reports: No Symptoms GI/Abdominal: Reports: Nausea : Reports: No Symptoms Musculoskeletal: Reports: Leg Pain (residual pain R lateral thigh) Skin: Reports: Bruising (R thigh from prior hematoma) Neurological: Reports: Dizziness, Headache, Pre-Existing Deficit, Weakness Psychiatric: Reports: No Symptoms Hematologic/Lymphatic: Reports: No Symptoms Immunologic: Reports: No Symptoms ED EXAM, DIZZINESS - Physical Exam Exam: See Below Exam Limited By: No Limitations General Appearance: Alert, WD/WN, No Apparent Distress, Anxious Eye Exam: Bilateral Eye: EOMI, Normal Inspection, PERRL Ears: Normal External Exam Nose: Normal Inspection Throat/Mouth: Normal Inspection, Normal Oropharynx Head Exam: Atraumatic, Normocephalic Vertigo: short duration (not observed) Neck: Normal Inspection, Supple, Non-Tender Respiratory/Chest: No Respiratory Distress, Lungs Clear, Normal Breath Sounds, No Accessory Muscle Use Cardiovascular: Regular Rate, Rhythm, No Edema, Systolic Murmur (aortic valve click) GI/Abdominal: Soft, Non-Tender, No Organomegaly, No Distention, No Mass (Female) Exam: Deferred Rectal (Female) Exam: Deferred Neurological: Alert, Normal Dorsiflexion, CN II-XII Intact, Oriented x 3 Back Exam: Normal Inspection Extremities: Redness (R thigh, residual from hematoma) Psychiatric: Anxious Skin Exam: Warm, Dry, Ecchymosis, Rash (R thigh) Course - Vital Signs Text/Narrative:: Following assessment, I administered Phenergan 50 mg IV and Tramadol 50 mg po for sxs relief. Screening labs included Hgb 10.9 gm, WBC 11,500, plts adequate; P:T 23.8/INR 2.75; CRP <0.2; UA neg. She was sxs improved at time of discharge. Last Recorded V/S: Last Vital Signs Temp 36.7 C 11/01/19 01:25 Pulse 96 11/01/19 01:25 Resp 20 11/01/19 01:25 BP 155/90 H 11/01/19 01:25 Pulse Ox 99 11/01/19 01:25 - Orders/Labs/Meds Labs: Laboratory Tests 11/01/19 11/01/19 11/01/19 Range/Units 00:15 00:15 00:15 WBC 11.5 (4.5-12.0) X10-3/uL RBC 4.03 (3.23-5.20) x10(6)uL Hgb 10.9 L (11.5-15.5) g/dL Hct 34.3 (30.0-51.3) % MCV 85.1 (80-96) fL MCH 27.1 L (27.7-33.6) pg MCHC 31.9 L (32.2-35.4) g/dL RDW 15.6 H (11.5-15.5) % Plt Count 429 H (125-369) X10(3)uL MPV 7.2 L (7.4-10.4) fL Neut % (Auto) 85.0 H (46-82) % Lymph % (Auto) 8.5 L (13-37) % Miller % (Auto) 4.6 (4-12) % Eos % (Auto) 2 (1.0-5.0) % Baso % (Auto) 0 (0-2) % Neut # (Auto) 9.8 H (1.6-8.3) # Lymph # (Auto) 1.0 (0.6-5.0) # Miller # (Auto) 0.5 (0.0-1.3) # Eos # (Auto) 0.2 (0.0-0.8) # Baso # (Auto) 0.0 (0.0-0.2) # PT (9.0-11.1) sec INR (1.00-1.24) Sodium 140 (135-145) mmol/L Potassium 3.9 (3.5-5.3) mmol/L Chloride 105 D (100-110) mmol/L Carbon Dioxide 26 (21-32) mmol/L BUN 18 (7-18) mg/dL Creatinine 1.0 (0.55-1.02) mg/dL Est Cr Clr Drug Dosing 46.40 mL/min Estimated GFR (MDRD) 56 L (>60) BUN/Creatinine Ratio 18.0 (9-20) Glucose 136 H (80-116) mg/dL Calcium 8.8 (8.6-10.2) mg/dL Total Bilirubin 0.3 (0.1-1.3) mg/dL AST 21 D (5-25) IU/L ALT 27 D (12-36) U/L Alkaline Phosphatase 139 H (56-112) IU/L C-Reactive Protein < 0.2 L (0.5-0.9) mg/dL Total Protein 7.4 (6.0-8.0) g/dL Albumin 3.6 (3.2-4.6) g/dL Globulin 3.8 g/dL Albumin/Globulin Ratio 1.0 Urine Color (YELLOW) Urine Appearance (CLEAR) Urine pH (5.0-6.5) Ur Specific [place] (1.010-1.025) Urine Protein (NEGATIVE) mg/dL Urine Glucose (UA) (NORMAL) mg/dL Urine Ketones (NEGATIVE) mg/dL Urine Occult Blood (NEGATIVE) Urine Nitrite (NEGATIVE) Urine Bilirubin (NEGATIVE) Urine Urobilinogen (NEGATIVE) mg/dL Ur Leukocyte Esterase (NEGATIVE) Urine RBC (0-5) Urine WBC (0-5) Ur Squamous Epith Cells (NS,R,O) Urine Bacteria (NS) 11/01/19 11/01/19 Range/Units 00:15 01:40 WBC (4.5-12.0) X10-3/uL RBC (3.23-5.20) x10(6)uL Hgb (11.5-15.5) g/dL Hct (30.0-51.3) % MCV (80-96) fL MCH (27.7-33.6) pg MCHC (32.2-35.4) g/dL RDW (11.5-15.5) % Plt Count (125-369) X10(3)uL MPV (7.4-10.4) fL Neut % (Auto) (46-82) % Lymph % (Auto) (13-37) % Miller % (Auto) (4-12) % Eos % (Auto) (1.0-5.0) % Baso % (Auto) (0-2) % Neut # (Auto) (1.6-8.3) # Lymph # (Auto) (0.6-5.0) # Miller # (Auto) (0.0-1.3) # Eos # (Auto) (0.0-0.8) # Baso # (Auto) (0.0-0.2) # PT 23.8 H (9.0-11.1) sec INR 2.25 H (1.00-1.24) Sodium (135-145) mmol/L Potassium (3.5-5.3) mmol/L Chloride (100-110) mmol/L Carbon Dioxide (21-32) mmol/L BUN (7-18) mg/dL Creatinine (0.55-1.02) mg/dL Est Cr Clr Drug Dosing mL/min Estimated GFR (MDRD) (>60) BUN/Creatinine Ratio (9-20) Glucose (80-116) mg/dL Calcium (8.6-10.2) mg/dL Total Bilirubin (0.1-1.3) mg/dL AST (5-25) IU/L ALT (12-36) U/L Alkaline Phosphatase (56-112) IU/L C-Reactive Protein (0.5-0.9) mg/dL Total Protein (6.0-8.0) g/dL Albumin (3.2-4.6) g/dL Globulin g/dL Albumin/Globulin Ratio Urine Color Yellow (YELLOW) Urine Appearance Slightly cloudy (CLEAR) Urine pH 7.0 H (5.0-6.5) Ur Specific [place] 1.015 (1.010-1.025) Urine Protein Negative (NEGATIVE) mg/dL Urine Glucose (UA) Normal (NORMAL) mg/dL Urine Ketones Negative (NEGATIVE) mg/dL Urine Occult Blood Negative (NEGATIVE) Urine Nitrite Negative (NEGATIVE) Urine Bilirubin Negative (NEGATIVE) Urine Urobilinogen Normal (NEGATIVE) mg/dL Ur Leukocyte Esterase Negative (NEGATIVE) Urine RBC 0-5 (0-5) Urine WBC 0-5 (0-5) Ur Squamous Epith Cells Few H (NS,R,O) Urine Bacteria Few H (NS) Meds: Medications Discontinued Medications Generic Name Dose Route Start Last Admin Trade Name Freq PRN Reason Stop Dose Admin Promethazine HCl 25 mg/ Sodium 51 mls @ 200 mls/hr 11/01/19 01:00 11/01/19 01 :13 Chloride IV 11/01/19 01:15 200 mls/hr ONETIME ONE Administration Meclizine HCl 25 mg 11/01/19 00:27 11/01/19 01:12 Antivert PO 11/01/19 00:28 25 mg ONETIME ONE Administration Tramadol HCl 50 mg 11/01/19 00:44 11/01/19 01:12 Ultram PO 11/01/19 00:45 50 mg ONETIME ONE Administration Departure - Departure Time of Disposition: 02:16 Disposition: Home, Self-Care 01 Condition: Fair Clinical Impression: Vertigo - Discharge Information *PRESCRIPTION DRUG MONITORING PROGRAM REVIEWED*: Not Applicable *COPY OF PRESCRIPTION DRUG MONITORING REPORT IN PATIENT VERONICA: Not Applicable Referrals: Roderick Scott MD [Primary Care Provider] - Forms: ED Department Discharge Sepsis Event Note - Evaluation Sepsis Screening Result: No Definite Risk - Focused Exam Vital Signs: Vital Signs Temp Pulse Resp BP Pulse Ox 11/01/19 01:25 36.7 C 96 20 155/90 H 99 11/01/19 00:00 36.8 C 89 18 154/81 H 98 Date Exam was Performed: 11/01/19 Time Exam was Performed: 02:14 - Problem List & Annotations (1) Vertigo SNOMED Code(s): 020135547 Code(s): R42 - DIZZINESS AND GIDDINESS Status: Acute Current Visit: Yes Annotation/Comment:: Vertigo, possibly related to a viral illness. She does have some injection of the L eye. I dispensed Meclizine 25 mg up to 3 times per day, activity as tolerated. Vertigo, with PMH of Meniere's Disease. I discussed Phenergan 25-50 mg cap for sxs, and she will discuss with PCP. - Problem List Review Problem List Initiated/Reviewed/Updated: Yes - Assessment/Plan Plan: Follow up with PCP.
[2019-11-01] MEDS ORDERED: traMADol 50 MG Tab PO ONE (00:44)
[2019-11-01] MEDS ORDERED: Promethazine 25 MG in Sodium Chloride 0.9% 50 ML IV ONE (01:00)
== END 2019-11-01 02:40 | disposition home or self-care (01) ==
LOC: FB.ED 23:59
DX: R42 Dizziness and giddiness (principal); E78.00 Pure hypercholesterolemia, unspecified; K21.9 Gastro-esophageal reflux disease without esophagitis; E66.9 Obesity, unspecified; Z68.30 Body mass index [BMI] 30.0-30.9, adult; Z79.899 Other long term (current) drug therapy; Z88.6 Allergy status to analgesic agent; Z91.040 Latex allergy status; Z79.01 Long term (current) use of anticoagulants
CPT/HCPCS: 36415; 80053; 81001; 85025; 85610; 86140; 96374; 99285; A9270; J2550; J7050; 99283

== ENCOUNTER 2019-11-14 06:39 | Day surgery (SDC) | payer MEDICARE, OTHER ==
[2019-11-14] MEDS ORDERED: Lidocaine 2% 5 ML SDV INJECT ONE (06:40)
[2019-11-14] MEDS ORDERED: Propofol 200 MG/20 ML SDV IV ONE (06:40)
[2019-11-14] MEDS ORDERED: Lactated Ringers 1,000 ML IV SCH (06:45)
[2019-11-14] MEDS ORDERED: Sodium Chloride 0.9% 10 ML Syringe FLUSH PRN (06:45)
[2019-11-14] MEDS ORDERED: Sodium Chloride 0.9% 250 ML IV SCH (08:15)
--- NOTE | 2019-11-14 10:36 | PCM.OPNOTE ---
- General Post-Op/Procedure Note Date of Surgery/Procedure: 11/14/19 Operative Procedure(s): c scope Findings: normal exam Pre Op Diagnosis: personal hx of colon polyp (with low grade dysplasia) Post-Op Diagnosis: normal exam Anesthesia Technique: MAC Primary Surgeon: Chuy Subramanian Anesthesia Provider: Fallon Foss Pathology: none Complications: None Condition: Good Free Text/Narrative:: Intake & Output 11/13/19 11/14/19 11/14/19 22:59 06:59 14:59 Intake Total 212 Balance 212 see dictation
--- NOTE | 2019-11-14 16:48 | OR ---
DATE OF OPERATION: 11/14/2019 SURGEON: Chuy Subramanian MD PROCEDURE PERFORMED: Colonoscopy. PREOPERATIVE DIAGNOSIS: Personal history of colon polyp with some low-grade dysplasia. POSTOPERATIVE DIAGNOSIS: Normal exam. INDICATIONS FOR PROCEDURE: This is a 64-year-old white female, who underwent a colonoscopy last year and had a colon polyp removed. It was noted to have some dysplasia. She presents now for 1-year followup scope. DESCRIPTION OF OPERATION: After an excellent IV sedation was administered, digital rectal exam was performed. No marked abnormality was noted. Flexible colonoscope was inserted and advanced to the cecum. The prep was excellent. The following findings were noted: Ascending colon, unremarkable. Transverse colon, unremarkable. Descending colon, unremarkable. Sigmoid and rectum, unremarkable. The colon was deflated as the scope was removed. RECOMMENDATIONS: Repeat colonoscopy in 10 years. /[id number] /[id number]
== END 2019-11-14 11:43 | disposition home or self-care (01) ==
LOC: FB.SDS 06:39
PROVIDERS: ATTEND Surgery
DX: K92.1 Melena (principal); E78.2 Mixed hyperlipidemia; K21.9 Gastro-esophageal reflux disease without esophagitis; Z79.899 Other long term (current) drug therapy; Z88.6 Allergy status to analgesic agent; Z91.040 Latex allergy status; Z88.8 Allergy status to other drugs, medicaments and biological substances; Z86.010 Personal history of colon polyps; Z98.890 Other specified postprocedural states; Z88.5 Allergy status to narcotic agent
CPT/HCPCS: 00811; 36415; 36430; 45378; 85610; 86900; 86901; J2001; J2704; J7050; J7120; P9017

== ENCOUNTER 2022-03-19 17:55 | Emergency (ER) | payer MEDICARE, OTHER ==
[2022-03-19] MEDS ORDERED: Sodium Chloride 0.9% 10 ML Syringe FLUSH PRN (17:57)
[2022-03-19 18:25] LABS: ESTIMATED GFR 70 mL/min (>60)
[2022-03-19] MEDS ORDERED: Metolazone 2.5 MG Tab PO ONE (18:42)
[2022-03-19] MEDS ORDERED: Furosemide 20 MG/2 ML VIAL IVPUSH STA (18:42)
[2022-03-19] MEDS ORDERED: Furosemide 20 MG Tab PO STA (19:15)
== END 2022-03-19 19:50 | disposition home or self-care (01) ==
LOC: FB.ED 17:55
DX: I50.32 Chronic diastolic (congestive) heart failure (principal); J44.9 Chronic obstructive pulmonary disease, unspecified; E78.00 Pure hypercholesterolemia, unspecified; E66.9 Obesity, unspecified; Z68.32 Body mass index [BMI] 32.0-32.9, adult; Z88.6 Allergy status to analgesic agent; Z88.8 Allergy status to other drugs, medicaments and biological substances; Z91.040 Latex allergy status; Z79.899 Other long term (current) drug therapy; Z79.01 Long term (current) use of anticoagulants
CPT/HCPCS: 36415; 71045; 80053; 83880; 84484; 85025; 85610; 85730; 93005; 99284; A9270

== ENCOUNTER 2023-09-25 12:19 | Emergency (ER) | payer MEDICARE ==
[2023-09-25 13:03] LABS: BASOPHILS PERCENT AUTO 0.5 % (0.2-1.5); EOSINOPHILS ABSOLUTE AUTO 0.2 x10-3/uL (0.0-0.8); EOSINOPHILS PERCENT AUTO 2.5 % (0.6-8.1); HEMATOCRIT 38.4 % (34.2-48.2); HEMOGLOBIN 12.7 g/dL (11.4-15.5); LYMPHOCYTES ABSOLUTE AUTO 1.4 x10-3/uL (1.0-4.4); LYMPHOCYTES PERCENT AUTO 19.2 % (18.4-52.1); MEAN CORPUSCULAR HGB CONC 33.2 g/dL (31.9-34.8); MEAN CORPUSCULAR VOLUME 90.3 fL (76.7-100.5); MEAN PLATELET VOLUME 7.4 fL (7.1-12.4); MONOCYTES ABSOLUTE AUTO 0.4 x10-3/uL (0.3-1.0); MONOCYTES PERCENT AUTO 5.3 % (4.4-15.7); NEUTROPHILS ABSOLUTE AUTO 5.2 x10-3/uL (1.5-6.3); NEUTROPHILS PERCENT AUTO 72.5 % (30.8-76.2); PLATELET COUNT,PLT 291 x10(3)uL (151-488); RED BLOOD CELL COUNT 4.25 x10(6)uL (3.60-5.20); RED CELL DISTRIBUTION WIDTH 15.2 % (12.3-16.5); WHITE BLOOD CELL COUNT,WBC 7.2 x10-3/uL (3.0-10.3)
[2023-09-25] MEDS ORDERED: Lactulose Soln 10 GM/15 ML 30 ML UD Cup PO ONE (13:05)
[2023-09-25 13:07] LABS: BLOOD UREA NITROGEN,BUN 25 mg/dL (7-18); CALCIUM 9.1 mg/dL (8.6-10.2); CARBON DIOXIDE,CO2 31 mmol/L (21-32); CHLORIDE,CL 104 mmol/L (100-110); EST CRCL DRUG DOSING (CG) 45.85 mL/min; ESTIMATED GFR 61 mL/min (>60); GLUCOSE RANDOM 108 mg/dL (80-116); POTASSIUM,K 4.2 mmol/L (3.5-5.3); SODIUM,NA 141 mmol/L (135-145)
[2023-09-25 13:13] LABS: ALANINE AMINOTRANSFERASE,ALT 49 U/L (12-36); ALBUMIN 3.7 g/dL (3.2-4.6); ALKALINE PHOSPHATASE 88 IU/L (56-112); ASPARTATE AMNIOTRANSFERASE,AST 36 IU/L (5-25); BILIRUBIN TOTAL 0.5 mg/dL (0.1-1.3); PROTEIN TOTAL,TP 7.5 g/dL (6.0-8.0)
[2023-09-25 13:22] LABS: INR 7.97 (1.00-1.24); PROTHROMBIN TIME 86.5 sec (9.0-11.1)
[2023-09-25] MEDS: Phytonadione 5 MG Tab PO ONE (13:46)
== END 2023-09-25 13:53 | disposition home or self-care (01) ==
LOC: FB.ED 12:19
DX: R04.0 Epistaxis (principal); R79.89 Other specified abnormal findings of blood chemistry; R79.1 Abnormal coagulation profile; J44.9 Chronic obstructive pulmonary disease, unspecified; E66.9 Obesity, unspecified; Z68.31 Body mass index [BMI] 31.0-31.9, adult; Z88.6 Allergy status to analgesic agent; Z91.040 Latex allergy status; Z88.8 Allergy status to other drugs, medicaments and biological substances; Z79.899 Other long term (current) drug therapy; Z79.01 Long term (current) use of anticoagulants; Z86.73 Personal history of transient ischemic attack (TIA), and cerebral infarction without residual deficits
CPT/HCPCS: 36415; 80053; 85025; 85610; 99283; A9270-GY